=== PATIENT | female | born 1995 | race Caucasian/White ===

== ENCOUNTER 2016-07-08 11:21 | Emergency (ER) | payer SELFPAY ==
[~2016-07-08] VITALS: Ht 160 cm; Wt 100.0 kg
[2016-07-08 11:23] VITALS: BP 128/64; PULSE 118; RESP 16; TEMP 98.4; O2SAT 97
[2016-07-08 12:25] VITALS: BP 116/74; PULSE 96; RESP 18; TEMP 98.6; O2SAT 99
--- NOTE | 2016-07-08 13:39 | PD ---
HPI Chief Complaint: Manager Telemetry Problem/Complaint Time Seen by Provider: 13:29 Travel History International Travel<30 days: No Contact w/Intl Traveler<30days: No Traveled to known affect area: No History of Present Illness HPI 20-year-old female complains of pelvic cramping and aching pain upper bilateral thigh. Patient status post vaginal delivery 5 weeks ago. Patient started having low pelvic cramping and vaginal bleeding and bowel leg cramping 2 days ago. Patient denies any fever chills. Patient denies any chest pain or shortness of breath. Patient denies any nausea vomiting diarrhea. PFSH Past Medical History ?: Not LMP: 05/24/16 Social History Alcohol Use: No Tobacco Use: No Allergies-Medications (Allergen,Severity, Reaction): Coded Allergies: No Known Allergies (Unverified , 07/08/16) Reported Meds & Prescriptions Reported Meds & Active Scripts Active No Active Prescriptions or Reported Medications Review of Systems General / Constitutional: No: Fever Eyes: No: Visual changes HENT: No: Headaches Cardiovascular: No: Chest Pain or Discomfort Respiratory: No: Shortness of Breath Gastrointestinal: Positive: Abdominal Pain Genitourinary: Positive: Pelvic Pain, Vaginal Bleeding, No: Dysuria Musculoskeletal: No: Pain Skin: No Rash Neurologic: No: Weakness Psychiatric: No: Depression Endocrine: No: Polydipsia Hematologic/Lymphatic: No: Easy Bruising Physical Exam Narrative GENERAL: Well-nourished, well-developed patient. SKIN: Warm and dry. HEAD: Normocephalic. EYES: No scleral icterus. No injection or drainage. NECK: Supple, trachea midline. No JVD or lymphadenopathy. CARDIOVASCULAR: Regular rate and rhythm without murmurs, gallops, or rubs. RESPIRATORY: Breath sounds equal bilaterally. No accessory muscle use. GASTROINTESTINAL: Abdomen soft, non-tender, nondistended. MUSCULOSKELETAL: No cyanosis, or edema. Patient has mild tenderness on palpation lateral aspect of bilateral thigh area. No redness no heat. Full range of motion of the hips area. BACK: Nontender without obvious deformity. No CVA tenderness. Neurologic exam normal. Data Data Last Documented VS Vital Signs Date Time Temp Pulse Resp B/P Pulse Ox O2 Delivery O2 Flow Rate FiO2 07/08/16 12:25 98.6 96 18 116/74 99 Room Air Orders Ed Urine Pregnancytest Poc (07/08/16 13:36) MDM Medical Decision Making Medical Screen Exam Complete: Yes Emergency Medical Condition: Yes Interpretation(s) 1449 PM. Urine test negative. Differential Diagnosis Differential diagnosis including dysmenorrhea, muscular spasm, threaten AB, ectopic . Narrative Course 20-year-old female complains of pelvic cramping, vaginal bleeding and upper thigh cramping pain. Status post vaginal delivery 5 weeks ago. Diagnosis Primary Impression: Dysmenorrhea Patient Instructions: General Instructions Med/Other Pt SpecificInfo: Prescription(s) given Scripts Meloxicam (Mobic)15 Mg Tab15 Mg PO DAILY #20 TAB Prov:Bala Mar MD 07/08/16 Disposition: 01 DISCHARGE HOME Condition: Stable Bala Mar MD Jul 08, 2016 13:39
[2016-07-08] MEDS ORDERED: MOBI15TA PO (14:51)
== END 2016-07-08 15:23 | disposition home or self-care (01) ==
LOC: NEPD 11:21
DX: N94.6 Dysmenorrhea, unspecified (principal)
CPT/HCPCS: 84703; 99283